=== PATIENT | male | born 1975 | race Caucasian/White ===

== ENCOUNTER 2016-07-27 03:57 | Emergency (ER) | payer OTHER ==
[2016-07-27] MEDS ORDERED: IBUPROFEN 600 MG TAB PO ONE (03:58)
--- NOTE | 2016-07-27 03:59 | EDPHY ---
H & P Time Seen by Provider: 07/27/16 03:58 HPI/ROS: CC: Left Wrist Pain HPI: This 41-year-old right-handed male presents to the emergency department tonight complaining of left wrist pain after playing hockey yesterday evening. He does not remember a specific injury but he remembers sitting on the bench and having a sudden onset of sharp pain in the medial aspect of his left wrist. He found it hard to use the hand for taking off his gear, etc. He went home and iced it but the pain continued. He rates it 8/10. It hurts worse when he moves his thumb. It shoots slightly up his forearm. It feels similar to when he broke the scaphoid bone in his right wrist in 2010 while playing soccer. He has not taken anything for the pain tonight. ROS: No head, neck or back injury. No shoulder or clavicular pain. The remainder of the ROS is negative. Past Medical/Surgical History: PMH: Right Scaphoid Fracture; Dental Abscess PSH: Root Canal, Herniorrhaphy Smoking Status: Never smoked Physical Exam: GEN: Alert and oriented x3 in no apparent distress HEENT: Normocephalic, atraumatic, pupils equally round, extraocular muscles intact Neck: supple Cardiovascular: normal peripheral profusion, radial pulses intact Lungs: non-labored respirations Musculoskeletal: No obvious deformity or swelling to left wrist, hand or forearm , no open wounds, +TTP to base of thumb w/snuff-box tenderness; pain with abduction of thumb; slight decreased filtrose crusher strength secondary to pain Constitutional: Initial Vital Signs Temperature (C) 97.9 F 07/27/16 03:59 Heart Rate 62 07/27/16 03:59 Respiratory Rate 16 07/27/16 03:59 Blood Pressure 125/99 H 07/27/16 03:59 O2 Sat (%) 95 07/27/16 03:59 O2 Delivery Mode Room Air Allergies/Adverse Reactions: No Known Allergies Allergy (Unverified 07/27/16 03:58) Home Medications: Medication Instructions Recorded Ibuprofen [Motrin (*)] 800 mg PO Q6-8PRN PRN #30 tab 07/27/16 Medical Decision Making - Diagnostics Imaging: I viewed and interpreted images myself ED Course/Re-evaluation: The patient was seen and examined, vital signs reviewed. X-rays were negative for fracture specifically scaphoid fracture by my read. I will personally review the radiology read in the morning and call the patient with the final report as requested. He was given ibuprofen for pain in the emergency department and a prescription for ibuprofen 800 mg p. o. q.6-8 hours p.r.n. severe pain, take with food. A preformed, Velcro thumb spica splint was applied to the left wrist by the Ashish Su. CMS intact post application. The patient does have a hand specialist due to his previous injury but he was also given a referral to our marketing support specialist quarry supervisor dimension stone as well. He knows he is to follow up in 10 days should the pain persist for repeat x-rays. Differential Diagnosis: Wrist fracture; Scaphoid Fracture; Wrist sprain - Data Points Medications Given: Discontinued Medications Ibuprofen (Motrin) 600 mg PO EDNOW ONE Stop: 07/27/16 03:59 Last Admin: 07/27/16 04:04 Dose: 600 mg Departure - Departure Disposition: Home, Routine, Self-Care Clinical Impression: Left wrist injury Condition: Good Instructions: Wrist Injury (ED) Additional Instructions: Follow up with orthopedic surgeon/hand specialist if symptoms persist. If continued pain, repeat x-ray in 10 day. Recheck sooner if worse. Referrals: Júnior Dumont MD [Medical Doctor] - As per Instructions Prescriptions: Ibuprofen [Motrin (*)] 800 mg PO Q6-8PRN PRN #30 tab PRN Reason: Pain, Severe
[2016-07-27 04:02] VITALS: BP 125/99; PULSE 62; RESP 16; TEMP 97.9; O2SAT 95
== END 2016-07-27 04:37 | disposition home or self-care (01) ==
LOC: CED 03:57
DX: S69.92XA Unspecified injury of left wrist, hand and finger(s), initial encounter (principal); X58.XXXA Exposure to other specified factors, initial encounter; Y99.8 Other external cause status; Y93.22 Activity, ice hockey
CPT/HCPCS: 73110-PO; L3807